=== PATIENT | male | born 1960 | race Caucasian/White ===

== ENCOUNTER 2018-04-30 13:02 | Emergency (ER) | payer OTHER ==
[~2018-04-30] VITALS: Ht 177.8 cm; Wt 74.1 kg
[~2018-04-30 13:02] MED LIST: AMLODIPINE BESYL5 MG PO; ASPIRIN EC325 MG PO; EFFIENT10 MG PO; GEMFIBROZIL600 MG PO; HYDROCHLOROTHIA25 MG PO; LISINOPRIL30 MG PO; LOPRESSOR25 MG PO; METFORMIN HCL1000 MG PO; SIMVASTATIN40 MG PO
[2018-04-30 14:23] LABS: HEMATOCRIT 47.5 % (38.0-50.0); HEMOGLOBIN 16.6 G/DL (12.5-16.6); MCH 31.5 PG (29.0-34.0); MCHC 34.9 G/DL (30.0-36.0); MCV 90.1 FL (86-99); PLATELET COUNT 260 K/uL (156-360); RBC DIS.WIDTH-CV 13.2 % (11.8-14.6); RBC DIS.WIDTH-SD 43.5 % (39-53); RED BLOOD COUNT 5.27 M/uL (4.00-5.50); WHITE BLOOD COUNT 9.9 K/uL (4.1-10.2)
[2018-04-30 14:36] LABS: CHLORIDE 109 mEq/L (99-109); POTASSIUM 4.6 mEq/L (3.7-5.4); SODIUM 142 mEq/L (136-147)
[2018-04-30 14:38] LABS: GLUCOSE 124 mg/dL (70-99)
[2018-04-30 14:41] LABS: CREATININE 1.7 mg/dL (0.6-1.3); GFR ESTIMATE (CALCULATED) 44 mL/min/ (58.99-99999)
[2018-04-30 14:42] LABS: UREA NITROGEN (BUN) 23 mg/dL (9-23)
[2018-04-30] MEDS ORDERED: MECLIZINE HCL25 MG PO (15:47)
[2018-04-30 16:03] VITALS: BP 128/80
== END 2018-04-30 16:08 | disposition home or self-care (01) ==
LOC: EME 13:02
PROVIDERS: Physician Assistant
DX: R42 Dizziness and giddiness (principal); E78.5 Hyperlipidemia, unspecified; I10 Essential (primary) hypertension; Z88.0 Allergy status to penicillin; F17.200 Nicotine dependence, unspecified, uncomplicated
CPT/HCPCS: 70450; 71046; 80048; 85027; 93005

== ENCOUNTER 2018-05-09 01:06 | Emergency (ER) | payer OTHER ==
[~2018-05-09] VITALS: Ht 180.3 cm; Wt 81.5 kg
[~2018-05-09 01:06] MED LIST changes: +MECLIZINE HCL25 MG PO
[2018-05-09 01:58] LABS: AMYLASE 60 IU/L (1-118); CHLORIDE 103 mEq/L (99-109); POTASSIUM 4.1 mEq/L (3.7-5.4); SODIUM 139 mEq/L (136-147)
[2018-05-09 01:59] LABS: GLUCOSE 134 mg/dL (70-99)
[2018-05-09 02:03] LABS: CREATININE 1.7 mg/dL (0.6-1.3); GFR ESTIMATE (CALCULATED) 44 mL/min/ (58.99-99999); INTER. NORMALIZED RATIO 1.2; PTT 31.5 SEC (25-37); SERUM ETHYL ALCOHOL < 10 mg/dL
[2018-05-09 02:04] LABS: UREA NITROGEN (BUN) 23 mg/dL (9-23)
[2018-05-09 02:06] LABS: LIPASE 21 U/L (1.0-51.0)
[2018-05-09 02:12] LABS: TROP-I INTERPRETATION NEGATIVE; TROPONIN-I < 0.01 ng/mL (0.0-0.30)
[2018-05-09 02:14] LABS: BASOPHIL (%) 0.7 % (0-1); BASOPHIL COUNT 0.1 K/uL (0-0.1); EOSINOPHIL (%) 2.7 % (0-5); EOSINOPHIL COUNT 0.3 K/uL (0-0.3); HEMATOCRIT 40.7 % (38.0-50.0); IMMATURE GRANULOCYTE (%) 0.7 % (0.0-0.7); LYMPHOCYTE (%) 32.1 % (15-42); LYMPHOCYTE COUNT 3.9 K/uL (1.0-2.8); MCH 31.6 PG (29.0-34.0); MCHC 35.4 G/DL (30.0-36.0); MCV 89.3 FL (86-99); MONOCYTE (%) 7.8 % (3-12); NEUTROPHIL COUNT 6.8 K/uL (1.8-6.4); PLATELET COUNT 272 K/uL (156-360); RBC DIS.WIDTH-CV 13.2 % (11.8-14.6); RED BLOOD COUNT 4.56 M/uL (4.00-5.50); WHITE BLOOD COUNT 12.1 K/uL (4.1-10.2)
[2018-05-09 02:16] LABS: HEMOGLOBIN 14.4 G/DL (12.5-16.6)
[2018-05-09 03:22] VITALS: BP 177/94
== END 2018-05-09 03:25 | disposition short-term general hospital (02) ==
LOC: EME → EDBD 01:06 → EME 01:06
PROVIDERS: Emergency Medicine
DX: I63.9 Cerebral infarction, unspecified (principal); I65.1 Occlusion and stenosis of basilar artery; I65.02 Occlusion and stenosis of left vertebral artery; R29.704 NIHSS score 4; E78.5 Hyperlipidemia, unspecified; I10 Essential (primary) hypertension; F17.200 Nicotine dependence, unspecified, uncomplicated; Z88.0 Allergy status to penicillin
CPT/HCPCS: 70450; 70496; 70498; 71045; 80047; 80048; 81003; 82150; 83690; 84484; 85025; 85610; 85730; 86850; 86900; 86901; 93005; 99281; 99285; G0480

== ENCOUNTER 2018-06-05 00:33 | Inpatient (IN) | payer OTHER ==
[~2018-06-05] VITALS: Ht 175.3 cm; Wt 74.0 kg
[2018-06-05 01:00] LABS: BASOPHIL (%) 0.8 % (0-1); BASOPHIL COUNT 0.1 K/uL (0-0.1); EOSINOPHIL (%) 7.8 % (0-5); EOSINOPHIL COUNT 0.9 K/uL (0-0.3); HEMATOCRIT 44.8 % (38.0-50.0); HEMOGLOBIN 15.7 G/DL (12.5-16.6); IMMATURE GRANULOCYTE (%) 0.9 % (0.0-0.7); LYMPHOCYTE (%) 26.8 % (15-42); LYMPHOCYTE COUNT 3.2 K/uL (1.0-2.8); MCH 31.3 PG (29.0-34.0); MCV 89.2 FL (86-99); MONOCYTE (%) 8.2 % (3-12); NEUTROPHIL (%) 55.5 % (45-76); NEUTROPHIL COUNT 6.5 K/uL (1.8-6.4); PLATELET COUNT 272 K/uL (156-360); RBC DIS.WIDTH-CV 13.1 % (11.8-14.6); RBC DIS.WIDTH-SD 42.5 % (39-53); RED BLOOD COUNT 5.02 M/uL (4.00-5.50); WHITE BLOOD COUNT 11.8 K/uL (4.1-10.2)
[2018-06-05 01:09] LABS: AMYLASE 63 IU/L (1-118); CHLORIDE 110 mEq/L (99-109); POTASSIUM 3.6 mEq/L (3.7-5.4); SODIUM 141 mEq/L (136-147)
[2018-06-05 01:11] LABS: GLUCOSE 182 mg/dL (70-99)
[2018-06-05 01:14] LABS: SERUM ETHYL ALCOHOL < 10 mg/dL
[2018-06-05 01:15] LABS: CREATININE 1.4 mg/dL (0.6-1.3); GFR ESTIMATE (CALCULATED) 55 mL/min/ (58.99-99999)
[2018-06-05 01:16] LABS: UREA NITROGEN (BUN) 19 mg/dL (9-23)
[2018-06-05 01:18] LABS: LIPASE 33 U/L (1.0-51.0)
[2018-06-05 01:41] LABS: INTER. NORMALIZED RATIO 1.3
[2018-06-05 01:43] LABS: PTT 37.8 SEC (25-37)
[2018-06-05 01:54] LABS: TROP-I INTERPRETATION NEGATIVE; TROPONIN-I < 0.01 ng/mL (0.0-0.30)
[2018-06-05 02:36] LABS: APPEARANCE CLEAR ((CLEAR)); BILIRUBIN NEGATIVE; BLOOD SMALL; COLOR YELLOW ((YELLOW)); GLUCOSE (STRIP) NEGATIVE; KETONES NEGATIVE; LEUKOCYTES NEGATIVE; NITRITE NEGATIVE; PROTEIN (STRIP) 100; SPECIFIC GRAVITY 1.023 (1.000-1.030); UROBILINOGEN 0.2 MG/DL (0.2-1.0)
[2018-06-05 02:52] LABS: BACTERIA NONE SEEN /HPF; EPITHELIAL CELLS RARE /HPF; HYALINE CASTS 0-5 /LPF; MUCUS TRACE /LPF; RED BLOOD CELLS 0-5 /HPF (0-5); UCUL ADDED? NO; WHITE BLOOD CELLS 0-5 /HPF (0-5)
[2018-06-05] MEDS ORDERED: ELIQUIS5 MG PO (03:56)
[2018-06-05] MEDS ORDERED: LIPITOR80 MG PO (03:56)
[2018-06-05] MEDS ORDERED: LISINOPRIL40 MG PO (03:57)
[2018-06-05] MEDS ORDERED: ERGOCALCIF50000 UNIT PO (03:59)
[2018-06-05] MEDS ORDERED: FLOMAX0.4 MG PO (03:59)
[2018-06-05] MEDS ORDERED: NIFEDIPINE ER90 MG PO (04:00)
[2018-06-05 04:41] VITALS: BP 129/68
[2018-06-05 05:08] LABS: HDL CHOLESTEROL 29 MG/DL (Desirable>=40); LDL CHOLESTEROL 37 mg/dL (Desirable<100); NON-HDL CHOLESTEROL 108 mg/dL (Desirable<160); TOTAL CHOLESTEROL 137 mg/dL (Desirable<200); TRIGLYCERIDES 356 MG/DL (Normal: <150)
[2018-06-05 06:13] LABS: HEMATOCRIT 44.6 % (38.0-50.0); HEMOGLOBIN 15.2 G/DL (12.5-16.6); MCH 30.5 PG (29.0-34.0); MCHC 34.1 G/DL (30.0-36.0); MCV 89.4 FL (86-99); PLATELET COUNT 286 K/uL (156-360); RBC DIS.WIDTH-CV 13.2 % (11.8-14.6); RBC DIS.WIDTH-SD 42.9 % (39-53); RED BLOOD COUNT 4.99 M/uL (4.00-5.50); WHITE BLOOD COUNT 11.7 K/uL (4.1-10.2)
[2018-06-05 06:39] LABS: CHLORIDE 107 MEQ/L (99-109); CREATININE 1.3 MG/DL (0.6-1.3); GFR ESTIMATE (CALCULATED) > 59 mL/min/ (58.99-99999); GLUCOSE 133 mg/dL (70-99); SODIUM 141 MEQ/L (136-147); UREA NITROGEN (BUN) 18 mg/dL (9-23)
[2018-06-05 08:10] VITALS: BP 107/64
[2018-06-05 10:14] LABS: HEMOGLOBIN A1c (GLYCOHEMOGLOB) 6.6 % (Below 5.7)
[2018-06-05 11:39] VITALS: BP 112/72
[2018-06-05 14:48] LABS: AMPHETAMINE NEGATIVE (500 ng/mL); BARBITURATES NEGATIVE (200 ng/mL); BENZODIAZEPINES NEGATIVE (150 ng/mL); BUPRENORPHINE NEGATIVE (10 ng/mL); COCAINE NEGATIVE (150 ng/mL); METHADONE NEGATIVE (200 ng/mL); METHAMPHETAMINE NEGATIVE (500 ng/mL); OPIATES (MORPHINE) NEGATIVE (100 ng/mL); OXYCODONE NEGATIVE (100 ng/mL); PHENCYCLIDINE NEGATIVE (25 ng/mL); PROPOXYPHENE NEGATIVE (300 ng/mL); THC CANNABINOIDS PRESUMPTIVE POSITIVE (50 ng/mL); TRICYCLIC ANTIDEPRESSANTS NEGATIVE (300 ng/mL)
[2018-06-05 15:31] VITALS: BP 110/68
[2018-06-05 20:32] VITALS: BP 119/65
[2018-06-06 00:06] VITALS: BP 127/69
[2018-06-06 03:57] VITALS: BP 121/70
[2018-06-06 07:32] VITALS: BP 115/69
[2018-06-06] MEDS ORDERED: ASPIR 8181 M1 PO (09:59)
== END 2018-06-06 11:37 | disposition home or self-care (01) | DRG 93 ==
LOC: EME 00:33 → 5SOUTH 03:40 → EDOF 03:40 → 5SOUTH 04:15
PROVIDERS: Emergency Medicine; Hospitalist
DX: R47.01 Aphasia (principal); R29.810 Facial weakness; I25.10 Atherosclerotic heart disease of native coronary artery without angina pectoris; I10 Essential (primary) hypertension; E11.9 Type 2 diabetes mellitus without complications; F17.210 Nicotine dependence, cigarettes, uncomplicated; Z95.5 Presence of coronary angioplasty implant and graft; Z79.82 Long term (current) use of aspirin; Z79.01 Long term (current) use of anticoagulants; Z86.73 Personal history of transient ischemic attack (TIA), and cerebral infarction without residual deficits; E78.5 Hyperlipidemia, unspecified; Z87.442 Personal history of urinary calculi; Z82.3 Family history of stroke
CPT/HCPCS: 70450; 70496; 70498; 70551; 71046; 80048; 80048 91; 80061; 81003; 82150; 82948; 83036; 83690; 84484; 84999; 85025; 85027; 85610; 85730; 86850; 86900; 86901; 93005; G0480